=== PATIENT | female | born 1955 | race Caucasian/White ===

== ENCOUNTER 2022-04-11 12:02 | Outpatient (CLI) | payer OTHER, SELFPAY | END 2022-04-11 12:03 | disposition home or self-care (01) | LOC: NFLDREF 12:06 | PROVIDERS: PCP Internal Medicine; Visit Provider Internal Medicine | DX: N39.0 Urinary tract infection, site not specified (principal) | CPT/HCPCS: 87086; 87186 ==

== ENCOUNTER 2022-12-17 08:31 | Emergency (ER) | payer OTHER, SELFPAY ==
[2022-12-17 08:42] VITALS: BP 163/84; PULSE 77; RESP 14; TEMP 36.5; O2SAT 96; BMI 30.3
--- NOTE | 2022-12-17 09:01 | ED.EYEPROB ---
HPI - Eye Problem General Time Seen by Provider: 09:01 Date Seen: 12/17/22 Chief complaint: Eye Problems Stated complaint: something in left eye Time Seen by Provider: 12/17/22 08:59 Source: patient and RN notes reviewed Mode of arrival: ambulatory Limitations: no limitations History of Present Illness HPI Narrative: Patient is a 67-year-old female coming in with left lower lid irritation. She states her eye was tearing all last night. The eyelid in the lower portion on the left is swollen, can see a white area inside the eyelid. No trauma, no fevers. Sees [facility] for her eye doctor. Related Data Home Medications Medication Instructions Recorded Confirmed aspirin 81 mg chewable tablet 81 mg PO QDAY 04/11/22 04/18/22 ibuprofen 200 mg capsule 200 mg PO .Q6h Prn as needed PRN 04/18/22 04/18/22 Previous Rx's Medication Instructions Recorded atorvastatin 40 mg tablet 40 mg PO QDAY #90 tabs 04/18/22 lisinopril 10 1 tab PO QDAY #90 tabs 04/18/22 mg-hydrochlorothiazide 12.5 mg tablet gentamicin 0.3 % eye drops 2 drp ophthalmic (eye-left) QID 5 12/17/22 days #5 mL Allergies Allergy/AdvReac Type Severity Reaction Status Date / Time No Known Drug Allergies Allergy Verified 04/18/22 15:47 Review of Systems Narrative: As per HPI PFSH PFSH Surgical History History of repair of rotator cuff ?Z98.890 - Other specified postprocedural states (ICD-10) Social History Smoking Status: Never smoker Little interest or pleasure in doing things: not at all Feeling down, depressed, or hopeless: not at all Exam Const: Vital Signs, click to edit/add: Vital Signs - 24 hr 12/17/22 08:42 Temperature 97.7 F Pulse Rate [Right Pulse Oximeter] 77 Respiratory Rate 14 Blood Pressure [Ri ght Upper Arm] 163/84 H Pulse Oximetry 96 Oxygen Delivery Me thod Room Air Documenting provider has reviewed patient's vital signs: yes Other: 67-year-old female ambulatory in the ED of her own accord. Seen in exam room 4. Face is atraumatic. Do note some lower inner left eyelid mild erythema and swelling. Pupils are equal round reactive, conjugate gaze, sclera/conjunctiva are normal. Upper eyelids normal both eyes. Right lower lid normal. Retraction of her left lower eyelid reveals a little white area surrounded by some erythema consistent with a chalazion. Course Course Hospital Course: Reviewed conservative management with topical antibiotic drops to the eye, warm compresses. Did discuss that sometimes these do need to be opened and drained but that is a optometry procedure, nothing we do in the ED. at this time, feel she is safe and appropriate to try these conservative measures. Vital Signs Vital signs: Initial Vital Signs Temperature 97.7 F 12/17/22 08:42 Temperature Source Temporal Artery Scan 12/17/22 08:42 Pulse Rate 77 12/17/22 08:42 Respiratory Rate 14 12/17/22 08:42 Blood Pressure 163/84 H 12/17/22 08:42 Blood Pressure Mean 110 H 12/17/22 08:42 Blood Pressure Position Sitting 12/17/22 08:42 Pulse Oximetry 96 12/17/22 08:42 Oxygen Delivery Method Room Air 12/17/22 08:42 Vital Signs Temperature 97.7 F 12/17/22 08:42 Pulse Rate 77 12/17/22 08:42 Respiratory Rate 14 12/17/22 08:42 Blood Pressure 163/84 H 12/17/22 08:42 Pulse Oximetry 96 12/17/22 08:42 Oxygen Delivery Method Room Air 12/17/22 08:42 Temperature 97.7 F 12/17/22 08:42 Pulse Rate 77 12/17/22 08:42 Respiratory Rate 14 12/17/22 08:42 Blood Pressure 163/84 H 12/17/22 08:42 Pulse Oximetry 96 12/17/22 08:42 Oxygen Delivery Method Room Air 12/17/22 08:42 Discharge Plan Discharge Clinical Impression: Chalazion left lower eyelid Patient Disposition: Home, Self-Care Condition: Stable Instructions: Chalazion (ED) Additional Instructions: Use warm compresses and start the antibiotic eyedrop. If this is not improving her symptoms in the next 24-48 hours or if you are worsening, need to contact your eye clinic for further evaluation and management. Activity Level: Activity as Tolerated Prescriptions: New gentamicin 0.3 % drops 2 drp ophthalmic (eye-left) QID 5 Days Qty: 5 0RF No Action ibuprofen 200 mg capsule 200 mg PO .Q6h Prn as needed PRN lisinopril-hydrochlorothiazide 10-12.5 mg tablet 1 tab PO QDAY Qty: 90 3RF atorvastatin 40 mg tablet 40 mg PO QDAY Qty: 90 3RF aspirin 81 mg tablet,chewable 81 mg PO QDAY Follow Up/Referrals: Pallavi Broussard MD [Primary Care Provider] - Stand Alone Forms: DialMyApp Info Instructions
--- OUTSIDE RECORDS SUMMARY | 2022-12-17 09:13 | XMS_ITS | Continuity of Care Document ---
Author Name Unknown Organization Z [facility] Address [address] [place] [address] [address] [place] [address] Phone Care Team Providers Care Driver Courier Name Role Phone Nery Soto MD Unavailable Unavailable Procedures Procedure Date Office consultation, moderate 9 X-ray exam lwr spine, min 4 views Advance Directives Directive Yes / No Effective Date File Name No Information Encounters Encounter Description Practice Location Reason(s) For Visit Diagnoses Date Provider Providers Copied on Encounter Office consultation, moderate Z [facility] [place], [address] [place], [place] [address], [place], [address], [place] tel:[phone] [facility] No Information Charles Gabriel. [facility], [address] [place] [address] [address], [place], [place], [id number] , [place]. tel:[phone] Referring Provider: Mckay Hernández [facility] [address] [place], [address]. tel:[phone] Family History Family Member Type Diagnosis Age At Onset No Information Payers Payer name Insurance type Covered republican ID Authoriza timyron(s) [employer] Health Insurance CI [id number] [facility] [id number] BL [id number] Social History Type Description Quantity Date Captured Comments Sex Female Smoking Status No Information Chief Complaint And Reason For Visit No Information Reason For Referral Reason For Referral No Information History Of Present Illness Encounter Date Complaint History Of Prese nt Illness No Information Functional Status Date Functional Assessmen t No Information Instructions Date Instruction Additional Infor mation No Information Assessments Type Assessment Date No Information Patient Care Teams Name Effective Dates (start - stop) Status Members No Information
--- OUTSIDE RECORDS SUMMARY | 2022-12-17 09:13 | XMS_ITS | Continuity of Care Document ---
Author Name Unknown Organization Z [facility] Address [address] [place] [address] [address] [place] [address] Phone Care Team Providers Care Seeing Eye Dog Trainer Name Role Phone Nery Soto MD Unavailable Unavailable Procedures Procedure Date Office consultation, moderate 9 X-ray exam lwr spine, min 4 views Advance Directives Directive Yes / No Effective Date File Name No Information Encounters Encounter Description Practice Location Reason(s) For Visit Diagnoses Date Provider Providers Copied on Encounter Office consultation, moderate Z [facility] [place], [address] [place], [place] [address], [place], [address], [place] tel:[phone] [facility] No Information Charles Gabriel. [facility], [address] [place] [address] [address], [place], [place], [id number] , [place]. tel:[phone] Referring Provider: Mckay Hernández [facility] [address] [place], [address]. tel:[phone] Family History Family Member Type Diagnosis Age At Onset No Information Payers Payer name Insurance type Covered green party ID Authoriza timyron(s) [employer] Health Insurance CI [id number] [facility] [id number] BL [id number] Social History Type Description Quantity Date Captured [...]
== END 2022-12-17 09:34 | disposition home or self-care (01) ==
LOC: ED 09:11
PROVIDERS: Emergency Provider Family Medicine; PCP Internal Medicine
DX: H00.15 Chalazion left lower eyelid (principal)
CPT/HCPCS: 99282; 99283

== ENCOUNTER 2023-03-09 08:20 | Outpatient (CLI) | payer OTHER, SELFPAY ==
--- OUTSIDE RECORDS SUMMARY | 2023-03-13 06:45 | XMS_ITS | Continuity of Care Document ---
Author Name Unknown Organization Z [facility] Address [address] [place] [address] [address] [place] [address] Phone Care Team Providers Care Plate Painter Apprentice Name Role Phone Nery Soto MD Unavailable Unavailable Procedures Procedure Date Office consultation, moderate 9 X-ray exam lwr spine, min 4 views Advance Directives Directive Yes / No Effective Date File Name No Information Encounters Encounter Description Practice Location Reason(s) For Visit Diagnoses Date Provider Providers Copied on Encounter Office consultation, moderate Z [facility] [place], [address] [place], [place] [address], [place], [address], [place] tel:[phone] [facility] No Information Charles Gabriel. [facility], [address] [place] [address] [address], [place], [place], [id number] , [place]. tel:[phone] Referring Provider: Mckay Hernández [facility] [address] [place], [address]. tel:[phone] Family History Family Member Type Diagnosis Age At Onset No Information Payers Payer name Insurance type Covered alliance party ID Authoriza timyron(s) [employer] Health Insurance CI [id number] [facility] [id number] BL [id number] Social History Type Description Quantity Date Captured [...]
== END 2023-03-09 08:21 | disposition home or self-care (01) ==
LOC: NFLDREF 03-13 06:44
PROVIDERS: PCP Internal Medicine; Referring Provider Internal Medicine; Visit Provider Internal Medicine
DX: Z00.00 Encounter for general adult medical examination without abnormal findings (principal); I10 Essential (primary) hypertension; I25.10 Atherosclerotic heart disease of native coronary artery without angina pectoris; E66.9 Obesity, unspecified
CPT/HCPCS: 80048; 80061

== ENCOUNTER 2024-03-14 08:00 | Outpatient (CLI) | payer MEDICARE, SELFPAY ==
--- OUTSIDE RECORDS SUMMARY | 2024-03-17 04:18 | XMS_ITS | Referral Summary ---
Author Organization [facility] Address [address] [place] [address] Care Team Providers Care Park Recreation Manager Name Role Phone Pallavi Broussard MD Primary Care Provider [phone] Allergies No known active allergies Medications Medication Sig Dispensed Refills Start Date End Date Status oxyCODONE-acetaminophe n (PERCOCET) 5-325 MG per tabletIndications:S/P arthroscopy of left shoulder Take 1 tablet by mouth every 6 hours as needed for pain 30 tablet 04/13/2018 Active Social History Tobacco Use Types Packs/Day Years Used Date Smoking Tobacco: Never Smokeless Tobacco: Never Adolescent Education Answer Date Record ed Getting School Help Needed Not on file 03/05 Sex and Gender Information Value Date Recorded Sex Assigned at Not on file Gender Identity Not on file Sexual Orientation Not on file Last Filed Vital Signs Vital Sign Reading Time Taken Comments Blood Pressure 159/89 04/13/2018 12:50 PM BUCKLE GLUER Pulse 78 04/13/2018 7:59 AM BUCKLE GLUER Temperature 37.2 ??C (99 ??F) 04/13/2018 12:50 PM BUCKLE GLUER Respiratory Rate 16 04/13/2018 12:50 PM BUCKLE GLUER Oxygen Saturation 94% 04/13/2018 12:50 PM BUCKLE GLUER Inhaled Oxygen Concentration - - Weight 83 kg (183 lb) 04/13/2018 7:59 AM BUCKLE GLUER Height 165.1 cm (5' 5) 04/13/2018 7:59 AM BUCKLE GLUER Body Mass Index 30.45 04/13/2018 7:59 AM BUCKLE GLUER Plan of Treatment Not on file Medical Devices Implanted Type Area Felting Machine Operator Device Identifier Shelf Expiration Date Model / Serial / Lot Imp [place] Arthrex Bio-Swivelock [id number] Implanted:Qty : 1 on 04/13/2018 by Basil Cadet MD at [facility] Metallic Hardware/Anc hor Left: Shoulder ARTHREX 12/27/2019 AR-2324BC C-2 / / [id number] [place]ary Arthrex Bio-Swivelock [id number] Implanted:Qty : 1 on 04/13/2018 by Basil Cadet MD at [facility] Metallic Hardware/Anc hor Left: Shoulder ARTHREX 10/27/2019 AR-2324BC C-2 / / [id number] X 24.5mm Suture Zachary Implanted:Qty : 2 on 04/13/2018 by Basil Cadet MD at [facility] Left: Shoulder ARTHREX 02/25/2019 AR-2323BC M / / [id number] Care Teams Park Recreation Manager Relationship Specialty Start Date End Date Pallavi Broussard MD [facility] [address] [place], [place] [id number] PCP - General Internal Medicine 03/30/18
--- OUTSIDE RECORDS SUMMARY | 2024-03-17 04:18 | XMS_ITS | Clinical Summary ---
Author Organization [facility] Address [place], [place] [address] Care Team Providers Care Geophysical Support Specialist Name Role Phone Pallavi Broussard MD Primary Care Provider [phone] Allergies No known active allergies Medications Medication Sig Dispensed Refills Start Date End Date Status aspirin chewable 81 mg chewable tabletIndications:YUNI D (arteriosclerotic heart disease) Take 1 tablet by mouth once daily. 30 tablet 11 03/27/2019 Active atorvastatin (LIPITOR) 40 mg tabletIndications:YUNI D (arteriosclerotic heart disease) Take 1 tablet by mouth once daily in the evening. 30 tablet 2 03/26/2019 Active lisinopril-hydrochlor othiazide (10-12.5 mg) tablet (PRINZIDE; ZESTORETIC)Indication s:HTN (hypertension) Take 1 tablet by mouth once daily. 30 tablet 1 03/29/2019 Active Active Problems Problem Noted Date Diagnosed Date Chest pain 03/25/2019 Thoracic or lumbosacral neur itis or radiculitis, unspecified 06/04/2008 HTN (hypertension) FH: aortic aneurysm Immunizations Name Administration Dates Next Due Td (Age >=7 Years) 08/15/2005 Social History Tobacco Use Types Packs/Day Years Used Date Smoking Tobacco: Never Alcohol Use Standard Drinks/Week Comments Yes 240 (1 standard drink = 0.6 oz p ure alcohol) Sex and Gender Information Value Date Recorded Sex Assigned at Not on file Gender Identity Not on file Sexual Orientation Not on file Obstetrics History Last Filed Vital Signs Vital Sign Reading Time Taken Comments Blood Pressure 147/96 03/28/2019 11:05 AM CDT Pulse 75 03/28/2019 8:45 AM CDT Temperature 36.7 ??C (98 ??F) 03/28/2019 8:45 AM CDT Respiratory Rate 18 03/28/2019 8:45 AM CDT Oxygen Saturation 98% 03/28/2019 8:45 AM CDT Inhaled Oxygen Concentration - - Weight 83.8 kg (184 lb 11.9 oz) 03/28/2019 7:00 AM CDT Height 165.1 cm (5' 5) 03/26/2019 8:00 AM CDT Body Mass Index 30.74 03/26/2019 8:00 AM CDT Plan of Treatment Health Maintenance Due Date Last Done Comments Tdap 1966 Depression screening for age 12+ 1967 BMI (ht and wt on same day) for age 18+ 1973 Hepatitis C screening for age 18-79 1973 Colonoscopy through age 75 2000 Mammogram for age 45-75 2000 Zoster (shingles) series for age 50+ (1 of 2) 07/16/19 Tetanus booster 08/16/2015 08/15/2005 DEXA/DXA scan for age 65+ 2020 Pneumococcal series for age 65+ (1 of 1 - PCV) 021 COVID-19 vaccine series (2023-25 season) 4 Influenza for age 65+ 01/28/2024 Lipids for age 45-75 03/26/2024 03/26/2019 Procedures Procedure Name Priority Date/Time Associated Diagnosis Comments LIPID PANEL Early AM 03/26/2019 7:13 AM CDT from Last 3 Months or Most Recently Relevant to Health Maintenance Results * Lipid Panel - In AM (03/26/2019 7:13 AM CDT) CHOLESTEROL,TOTAL 187 100 - 199 mg/dL 03/26/2019 8:39 AM CDT [facility] TRIGLYCERIDES 50 <150 mg/dL 03/26/2019 8:39 AM CDT [facility] HDL CHOLESTEROL 60 >40 mg/dL 9 8:39 AM CDT [facility] NON-HDL CHOLESTEROL 127 <145 mg/dl 03/26/2019 8:39 AM CDT [facility] CHOL/HDL RATIO 3.12 <4.50 03/26/2019 8:39 AM CDT [facility] LDL CHOLESTEROL 117 <=130 mg/dL 03/26/2019 8:39 AM CDT [facility] PROVIDER ORDERED STATUS RANDOM 03/26/2019 8:39 AM CDT [facility] Blood BLOOD SPECIMEN / Unknown Butterfly / Unknown 03/26/2019 7:13 AM CDT 03/26/2019 8:13 AM CDT Florentino Lacy MD [facility] [address] [place] [address], from Last 3 Months or Most Recently Relevant to Health Maintenance Advance Directives * Full Code (Latest Code Status on File) Date Activated Date Inactivated Comments 03/25/2019 7:29 PM 03/28/2019 1:34 PM Care Teams Geophysical Support Specialist Relationship Specialty Start Date End Date Pallavi Broussard MD [address] [place] [address] PCP - General Internal Medicine 07/14/17
--- OUTSIDE RECORDS SUMMARY | 2024-03-17 04:18 | XMS_ITS | Continuity of Care Document ---
Author Organization Z [facility] Address [address] [place] [address] [address] [place] [address] Phone Care Team Providers Care Barrel Assembly Inspector Name Role Phone Nery Soto MD Unavailable Unavailable Procedures Procedure Date Office consultation, moderate 9 X-ray exam lwr spine, min 4 views Advance Directives Directive Yes / No Effective Date File Name No Information Encounters Encounter Description Practice Location Reason(s) For Visit Diagnoses Date Provider Providers Copied on Encounter Office consultation, moderate Z [facility] [place], [address] [place], [place] [address], [place], [address], [place] tel:[phone] [facility] No Information Charles Gabriel. [facility] [place], [address], [place], [place], [id number] , [place]. tel:[phone] Referring Provider: Mckay Clarke, [address], [place], [address]. tel:[phone] Family History Family Member Type Diagnosis Age At Onset No Information Payers Payer name Insurance type Covered green party ID Authoriza tion(s) [employer]ign[employer] Health Insurance CI [id number] [facility] [id number] BL [id number] Social History Type Description Quantity Date Captured [...]
--- OUTSIDE RECORDS SUMMARY | 2024-03-17 04:18 | XMS_ITS | Clinical Summary ---
Author Organization [place] Address [address] [place] [address] Care Team Providers Care Battery Parts Assembler Name Role Phone Palalvi Broussard MD Primary Care Provider Allergies No known active allergies Medications Medication [...] Comments Blood Pressure 159/89 04/13/2018 12:50 PM GLOBAL LOGISTICS ANALYST Pulse 78 04/13/2018 7:59 AM GLOBAL LOGISTICS ANALYST Temperature 37.2 ??C (99 ??F) 04/13/2018 12:50 PM GLOBAL LOGISTICS ANALYST Respiratory Rate 16 04/13/2018 12:50 PM GLOBAL LOGISTICS ANALYST Oxygen Saturation 94% 04/13/2018 12:50 PM GLOBAL LOGISTICS ANALYST Inhaled Oxygen Concentration - - Weight 83 kg (183 lb) 04/13/2018 7:59 AM GLOBAL LOGISTICS ANALYST Height 165.1 cm (5' 5) 04/13/2018 7:59 AM GLOBAL LOGISTICS ANALYST Body Mass Index 30.45 04/13/2018 7:59 AM GLOBAL LOGISTICS ANALYST Plan of Treatment Not on file Medical Devices Implanted Type Area Ballet Teacher Device Identifier Shelf Expiration Date Model / Serial / Lot Imp [place] Arthrex Bio-Swivelock [id number] Implanted:Qty : 1 on 04/13/2018 by Basil Cadet MD at [facility] Metallic Hardware/Anc hor Left: Shoulder ARTHREX 12/27/2019 AR-2324BC C-2 / / [id number] [place] Arthrex Bio-Swivelock [id number] Implanted:Qty : 1 on 04/13/2018 by Basil Cadet MD at [facility] Metallic Hardware/Anc hor Left: Shoulder ARTHREX 10/27/2019 AR-2324BC C-2 / / [id number] X 24.5mm Suture [place] Implanted:Qty : 2 on 04/13/2018 by Basil Cadet MD at [facility] Left: Shoulder ARTHREX 02/25/2019 AR-2323BC M / / [id number] Care Teams Battery Parts Assembler Relationship Specialty Start Date End Date Pallavi Broussard MD [facility] [address] [place], [place] [id number] PCP - General Internal Medicine 03/30/18
== END 2024-03-14 08:01 | disposition home or self-care (01) ==
LOC: NFLDREF 03-17 04:17
PROVIDERS: PCP Internal Medicine; Referring Provider Internal Medicine; Visit Provider Internal Medicine
DX: I25.10 Atherosclerotic heart disease of native coronary artery without angina pectoris (principal); I10 Essential (primary) hypertension; E66.9 Obesity, unspecified
CPT/HCPCS: 80048; 80061

== ENCOUNTER 2024-06-03 06:33 | Outpatient (CLI) | payer MEDICARE, BC, SELFPAY ==
--- NOTE | 2024-06-03 08:13 | W.ANESCHARGE ---
Anesthesia Charges Start Date/Time Anesthesia Start Date: 06/03/24 Anesthesia Start Time: 07:29 Stop Date/Time Anesthesia Stop Date: 06/03/24 Anesthesia Stop Time: 08:01
--- NOTE | 2024-06-03 08:55 | W.ANESCHARGE ---
Anesthesia Charges Start Date/Time Anesthesia Start Date: 06/03/24 Anesthesia Start Time: 07:29 Stop Date/Time Anesthesia Stop Date: 06/03/24 Anesthesia Stop Time: 08:01
== END 2024-06-03 06:34 | disposition home or self-care (01) ==
PROVIDERS: PCP Internal Medicine; Visit Provider Surgery
DX: Z12.11 Encounter for screening for malignant neoplasm of colon (principal); Z86.0100 Personal history of colon polyps, unspecified
CPT/HCPCS: 00811; 00812; 45378; J2704

== ENCOUNTER 2024-06-06 08:11 | Outpatient (CLI) | payer MEDICARE, BC, SELFPAY ==
--- NOTE | 2024-06-06 08:15 | CRLHL7_ITS ---
For Patients: As a result of the Century Cures Act, medical imaging exams and procedure reports are released immediately into your electronic medical record. You may view this report before your referring provider. If you have questions, please contact your health care provider. BILATERAL SCREENING MAMMOGRAM WITH COMPUTER-AIDED DETECTION AND TOMOSYNTHESIS TECHNIQUE: CC and MLO views were obtained. These mammographic images have been obtained using full-field digital technique. These mammographic images were interpreted with the benefit of computer-aided detection. Breast Tomosynthesis was used in this interpretation. COMPARISON FILM: 10/17/22, 07/09/21, 07/02/20. FINDINGS: There are scattered areas of fibroglandular density. IMPRESSION: There is no radiographic evidence for malignancy. ASSESSMENT: BI-RADS Category 1: Negative RECOMMENDATION: Routine screening mammogram in 1 year. A lay language report of this examination will be provided to the patient. Mart Sotomayor M.D. Diagnostic Radiologist [email or web address] SP/Dictated by: Mart Sotomayor MD @ 06/06/2024 10:25:00 AM (Electronically Signed)
== END 2024-06-06 08:12 | disposition home or self-care (01) ==
LOC: MAMMO 08:12
PROVIDERS: PCP Internal Medicine; Visit Provider Internal Medicine
DX: Z12.31 Encounter for screening mammogram for malignant neoplasm of breast (principal)
CPT/HCPCS: 77063; 77067

== ENCOUNTER 2025-05-19 08:10 | Outpatient (CLI) | payer MEDICARE, BC, SELFPAY | END 2025-05-19 08:11 | disposition home or self-care (01) | PROVIDERS: PCP Internal Medicine; Visit Provider Internal Medicine | DX: I10 Essential (primary) hypertension (principal); I25.10 Atherosclerotic heart disease of native coronary artery without angina pectoris | CPT/HCPCS: 80048; 80061 ==